=== PATIENT | female | born 2000 | race Caucasian/White ===

== ENCOUNTER 2024-02-17 18:45 | Emergency (ER) | payer OTHER, SELFPAY ==
[2024-02-17] VITALS (9 sets, daily range): BP systolic 114–120; BP diastolic 67–82; PULSE 77–102; RESP 18–20; TEMP 37.2; O2SAT 97–100; BMI 20.6
--- NOTE | 2024-02-17 19:03 | CRLHL7_ITS ---
For Patients: As a result of the Century Cures Act, medical imaging exams and procedure reports are released immediately into your electronic medical record. You may view this report before your referring provider. If you have questions, please contact your health care provider. INDICATION: Chest pain. TECHNIQUE: Chest 1 view. COMPARISON: None. FINDINGS: Cardiovascular and mediastinum: Heart size and vasculature are normal in caliber and appearance. Lungs and pleural spaces: Lungs are clear. No pleural effusion, or pneumothorax. Bones and soft tissues: Unremarkable for age. IMPRESSION: No evidence of an acute pulmonary process. Dictated by Sunday Mills MD @ 02/17/2024 7:42:55 PM (Electronically Signed)
--- NOTE | 2024-02-17 19:06 | ED.GENADULT ---
HPI - General Adult General Chief complaint: Chest Pain Stated complaint: Chest Pains over 24 hours Time Seen by Provider: 02/17/24 18:55 History of Present Illness HPI narrative: Patient is a 24-year-old female who has had some left midclavicular line lower chest wall pain just under her left breast for the last 24 hours. Worse with certain movements deep breathing. She has not had any fevers, chills, cough. She has had no substernal chest pain. She has had no leg swelling edema or bleeding or clotting problems. She has generally felt well and has been healthy. She is not allergic to medication Related Data Previous Rx's ?Medication ?Instructions ?Recorded prednisone 20 mg tablet 20 mg PO BID #10 tabs 02/17/24 Allergies Allergy/AdvReac Type Severity Reaction Status Date / Time No Known Drug Allergies Allergy Verified 02/17/24 18:54 Review of Systems Status of ROS: Reports: 6 or more systems reviewed and unremarkable except as noted in History and below [facility] Social History Smoking Status: Current every day smoker Do you use any of these nicotine containing products: E-Cigarettes and Vaping Products Second hand tobacco smoke exposure: No How often do you have a drink containing alcohol: monthly or less AUDIT-C Alcohol total score: 1 Non-prescribed substance use: denies use Exam Narrative: Exam Narrative: Objective: The patient's vital signs look unremarkable her temp slightly elevated 99 blood pressure and pulse and respiratory rate are normal O2 sats 100% on room air HEENT is unremarkable patient is no apparent distress No cyanosis Neck is supple Chest is clear no rales or wheezing Heart rhythm regular heart murmur Some mildly palpable chest wall pain just below the left breast area in the midclavicular line no crepitus Patient denies trauma or injury Abdomen benign Extremities she is moving all 4s Const: Vital Signs, click to edit/add: Vital Signs - 24 hr 02/17/24 18:49 02/17/24 19:03 02/17/24 19:08 Temperature 99.0 F Pulse Rate 77 Pulse Rate [Pulse Oximeter] 82 Respiratory Rate 20 Blood Pressure Blood Pressure [Ri ght Upper Arm] 119/67 Pulse Oximetry 100 100 100 Oxygen Delivery Me thod Room Air 02/17/24 19:32 02/17/24 20:12 02/17/24 20:38 Temperature Pulse Rate 101 H 97 99 Pulse Rate [Pulse Oximeter] Respiratory Rate 18 18 Blood Pressure 119/82 120/68 114/78 Blood Pressure [Ri ght Upper Arm] Pulse Oximetry 100 100 100 Oxygen Delivery Me thod Room Air Room Air Course Vital Signs Vital signs: Initial Vital Signs Temperature 99.0 F 02/17/24 18:49 Temperature Source Temporal Artery Scan 02/17/24 18:49 Pulse Rate 82 02/17/24 18:49 Respiratory Rate 20 02/17/24 18:49 Blood Pressure 119/67 02/17/24 18:49 Blood Pressure Mean 84 02/17/24 18:49 Blood Pressure Position Supine 02/17/24 18:49 Pulse Oximetry 100 02/17/24 18:49 Oxygen Delivery Method Room Air 02/17/24 18:49 Vital Signs Temperature 99.0 F 02/17/24 18:49 Pulse Rate 82 02/17/24 18:49 Respiratory Rate 20 02/17/24 18:49 Blood Pressure 119/67 02/17/24 18:49 Pulse Oximetry 100 02/17/24 18:49 Oxygen Delivery Method Room Air 02/17/24 18:49 Temperature 99.0 F 02/17/24 18:49 Pulse Rate 95 02/17/24 21:00 Respiratory Rate 18 02/17/24 20:38 Blood Pressure 114/78 02/17/24 20:38 Pulse Oximetry 97 02/17/24 21:00 Oxygen Delivery Method Room Air 02/17/24 20:38 Medications Administered Medications: Discontinued Medications Generic Name Dose Route Start Last Admin Trade Name Ariel PRN Reason Stop Dose Admin Ibuprofen 800 mg 02/17/24 19:03 02/17/24 19:24 Ibuprofen 400 Mg Tablet PO 02/17/24 19:04 800 mg ONCE ONE Administration Morphine Sulfate 4 mg 02/17/24 19:57 02/17/24 20:04 Morphine 4 Mg/Ml Inj IVP 02/17/24 19:58 4 mg ONCE ONE Administration Prednisone 50 mg 02/17/24 19:03 02/17/24 19:24 Prednisone 10 Mg Tablet PO 02/17/24 19:04 50 mg ONCE ONE Administration Medical Decision Making MDM Narrative Medical decision making narrative: 24-year-old white female with left midclavicular line lower chest wall discomfort. Definitely positional, little bit tender to push on. Likely chest wall inflammation. I think given her situation over be [email or web address] check an EKG, chest x-ray to make sure there is no pneumothorax or other pathology and also check a D-dimer and labs. Will check for completeness point of care troponin. By my read her EKG shows normal sinus rhythm with sinus arrhythmia no acute ST T wave changes. Addendum 8:00 p.m.: Patient's troponin is 0, her D-dimer just little bit above normal. She reports her pain in her left anterior chest with movement is getting little bit worse. He got some ibuprofen and prednisone, minute give her some IV morphine and will do a chest CT scan. Her EKG shows normal sinus rhythm with sinus arrhythmia but no acute ST T wave changes. Addendum 9:00 p.m.: The patient's chest CT was read as negative for PE or other focal consolidation. Should be discharged home on the prednisone and Advil as described. Also send her home with some additional [place] for pain control given that she seemed to be pretty uncomfortable her chest wall. EKG showed normal sinus rhythm no acute ST T wave changes and troponin was 0 as mention , lab studies look reassuring. I would recommend she recheck with regular doctor in the next few days if not completely resolved return if worsening or changes. She was comfortable this plan. Lab Data Labs: Lab Results 02/17/24 02/17/24 Range/Units 19:03 19:16 WBC 7.14 (4.50-11.00) K/uL RBC 3.76 L (4.00-5.20) m/uL Hgb 11.4 L (12.0-16.0) gm/dL Hct 34.1 (33.0-51.0) % MCV 91 (80-100) fL MCH 30 (26-34) pg MCHC 33 (32-36) gm/dL RDW Coeff of Grace 12.9 (11.5-15.5) % Plt Count 267 (140-440) K/uL Neut % (Auto) 53.9 (42.0-72.0) % Lymph % (Auto) 33.5 (20-44) % [place] % (Auto) 8.3 (0.0-11.0) % Eos % (Auto) 3.8 (0.0-7.0) % Baso % (Auto) 0.4 (0.0-3.0) % Neut # (Auto) 3.85 (1.7-7.0) K/uL Lymph # (Auto) 2.39 (0.90-2.90) K/uL [place] # (Auto) 0.60 (0.00-0.90) K/UL Eos # (Auto) 0.27 (0.00-0.50) K/uL Baso # (Auto) 0.03 (0.00-0.30) K/uL Abs Immat Gran (auto) 0.01 (0.00-0.30) K/uL Imm/Tot Granulo (auto) 0.1 % D-Dimer Quant (PE/DVT) 0.79 H (0.00-0.50) ug/ml Sodium 140 (135-149) mmol/L Potassium 4.4 (3.6-5.1) mmol/L Chloride 108 (96-114) mmol/L Carbon Dioxide 25 (20-32) mmol/L Anion Gap 7 (7-15) mEq/L BUN 11 (5-24) mg/dL Creatinine 0.6 (0.5-1.5) mg/dL Estimated Creat Clear 126.38 Estimated GFR 130 ml/min Glucose 100 (60-115) mg/dL Calcium 9.3 (8.4-10.6) mg/dL C-Reactive Protein < 0.5 L (0.5-1.0) mg/dL POC Troponin I 0.00 L (0.01-0.04) ng/ml Discharge Plan Discharge Clinical Impression: Acute chest wall pain Patient Disposition: Home w/ Parent or Adult Condition: Stable Additional Instructions: Light activity, ibuprofen 600 mg, 3 times a day for the next 5 days, prednisone 20 mg twice/day for five days. Follow up with regular doctor not improving changes concerns worsening return to the ED at any time. Activity Level: Light activity Discharge Diet: Regular Prescriptions: New prednisone 20 mg tablet 20 mg PO BID Qty: 10 0RF Follow Up/Referrals: Provider,Not a Local [Primary Care Provider] - Stand Alone Forms: [employer] Info Instructions
[2024-02-17] MEDS: predniSONE 10 MG TABLET 50 MG PO (19:24)
[2024-02-17] MEDS: IBUPROFEN 400 MG TABLET 800 MG PO (19:24)
[2024-02-17 19:25] LABS: Basophils Absolute Auto 0.03 K/uL (0.00-0.30); Basophils Percent Auto 0.4 % (0.0-3.0); Eosinophils Absolute Auto 0.27 K/uL (0.00-0.50); Eosinophils Percent Auto 3.8 % (0.0-7.0); Hematocrit 34.1 % (33.0-51.0); Hemoglobin* 11.4 gm/dL (12.0-16.0); Immature Granulocytes Abs Auto 0.01 K/uL (0.00-0.30); Immature Granulocytes Pct Auto 0.1 %; Lymphocytes Absolute Auto 2.39 K/uL (0.90-2.90); Lymphocytes Percent Auto 33.5 % (20-44); Mean Corpuscular HGB Conc 33 gm/dL (32-36); Mean Corpuscular Hemoglobin 30 pg (26-34); Mean Corpuscular Volume 91 fL (80-100); Monocytes Percent Auto 8.3 % (0.0-11.0); Neutrophils Absolute Auto 3.85 K/uL (1.7-7.0); Neutrophils Percent Auto 53.9 % (42.0-72.0); Platelet Count* 267 K/uL (140-440); RDW Coefficient of Variation % 12.9 % (11.5-15.5); Red Blood Count 3.76 m/uL (4.00-5.20); White Blood Count* 7.14 K/uL (4.50-11.00)
--- OUTSIDE RECORDS SUMMARY | 2024-02-17 19:34 | XMS_ITS | Referral Summary ---
Demographics Address [address] [place] [address] Mobile Phone Home Phone Email Address Email Address Preferred Language ENG Marital Status Single Faith Affiliation Unknown Race White Ethnic Group Not or Lati no Author Organization [facility] Address [address] [place] [address] Care Team Providers Care Patent Chemist Name Role Phone Mary Phillip APRN, C.N.P. Primary Care Provide r Source Comments Patient records contain information from all sites at [facility]. For routine questions regarding patient records, call [phone] during business hours, M-F 8:00 AM - 5:00 PM Central Time. Record requests for emergency care only can be directed to [phone] at any time.[facility] Encounters Date Type Department Care Team Description 02/06/2024 9:54 AM CDT - 02/06/2024 11:59 PM CDT Hospital Encounter Department of Radiology in [address] [phone] Murali Kelly M.D. Arthralgia; Arthritis Inflammatory (HCC) Discharge Disposition: Home or Self Care 02/06/2024 9:54 AM CDT - 02/06/2024 11:59 PM CDT Hospital Encounter Department of Radiology in [address] [phone] Murali Kelly M.D. Arthralgia; Arthritis Inflammatory (HCC) Discharge Disposition: Home or Self Care 02/06/2024 9:43 AM CDT - 02/06/2024 9:53 AM CDT Hospital Encounter Department of Laboratory Medicine in [address] [phone] Murali Kelly M.D. Arthralgia; Arthritis Inflammatory (HCC) Discharge Disposition: Home or Self Care 02/06/2024 9:00 AM CDT Office Visit Department of Family Medicine, [facility], in [place], [place] [address] [place] [phone] Murali Kelly M.D. Arthritis Inflammatory (HCC) (Primary Dx); Arthralgia; Asthma Tobacco User Discharge Disposition: Home or Self Care 02/06/2024 Nurse Triage Department of Family Medicine, [facility], [address] [phone] Anaya Bates R.N. Myalgia 02/05/2024 4:14 PM CDT - 02/05/2024 5:07 PM CDT [facility] [address] [place] [phone] Ember Castillo APRN, C.N.PCeasar Myalgia (Primary Dx) Discharge Disposition: Home or Self Care 02/05/2024 6:33 AM CDT - 02/05/2024 7:19 AM CDT [facility] [address] [place] [phone] Ember Castillo APRN, C.N.P. Torticollis (Primary Dx) Discharge Disposition: Home or Self Care from Last 3 Months Allergies Active Allergy Reactions Criticality Noted Date Comments Cat Dander Other (see comments) 05/22/2015 Please Verify & complete Reaction & Severity cervantes! Dog Dander Rash Medium 01/01/2016 Medications Medication Sig Dispensed Refills Start Date End Date Status multivitamin tablet Take 1 tablet by mouth. 11/29/2017 Active cetirizine (ZyrTEC) 10 mg tablet Take 10 mg by mouth daily as needed for allergies. Active cyclobenzaprine (FLEXERIL) 10 mg tablet Take 1 tablet (10 mg total) by mouth 3 (three) times a day as needed for muscle spasms for up to 5 days. 15 tablet 02/05/2024 Active methylPREDNISolone (MEDROL DOSEPAK) 4 mg tabletIndications:Art hritis Inflammatory (HCC) Take as directed on package. 21 tablet 02/06/2024 Active Active Problems Problem Noted Date Diagnosed Date Asthma Tobacco User 02/06/2024 Depressive Disorder 04/27/2017 Overview: Depression Immunizations Name Administration Dates Next Due 4vHPV (discontinued) 04/25/2017 9vHPV 04/03/2020,06/25/2019,04/25/2017 Adenovirus 04/19/2021 DTaP (Infanrix, Tripedia) 04/23/2007,06/18/2003 HepA Adult 08/07/2020 HepA Pediatric/Adolescent 03/29/2012 HepA, Pediatric Unspecified 03/29/2012 HepB Pediatric/Adolescent 04/25/2017,03/29/2012, 06/18/2003 HepB, Unspecified 03/29/2012 Hib (PRP-T) (ACTHIB, HIBERIX) 06/18/2003 IPV 05/24/2021, 2,04/23/2007,2002 Influenza Laiv (Nasal) (Discontinued) 08/04/2014 Influenza, Unspecified 10/14/2013,06/13/2011 MCV4 (Menactra)(Discontinued) 04/19/2021, 019,04/23/2014 MMR 04/23/2007,01/27/2003 Td (Adult), adsorbed 03/29/2012 Tdap 04/19/2021,04/25/2017 TyVi (inj) 05/24/2021 AMBROSIO 05/24/2021,,04/23/2007,2002 influenza vaccine quad (FLUZONE/FLUARIX) (6 months and older)(PF) 05/24/2021,06/25/2019,06/15/2018 Social History Tobacco Use Types Packs/Day Years Used Date Smoking Tobacco: Every Day E-cigarettes Started: 07/28/2020 Smokeless Tobacco: Never Tobacco Cessation:Ready to Q uit: Not Asked; Counseling Given: Not Answered Comments:Significantly cutting back. Alcohol Use Standard Drinks/Week Comments No 0 (1 standard drink = 0.6 oz pur e alcohol) 1-2 times a month Humiliation, Afraid, Rape, and Kick questionnair e Answer Date Recorded Within the last year, have y ou been afraid of your partner or ex-partner? No 12/08/2020 Within the last year, have y ou been humiliated or emotionally abused in other ways by your partner or ex-partner? No Within the last year, have y ou been kicked, hit, slapped, or otherwise physically hurt by your partner or ex-partner? No 12/08/2020 Within the last year, have y ou been raped or forced to have any kind of sexual activity by your partner or ex-partner? No 12/08/2020 Social Connection and Isolat ion Panel [NHANES] Answer Date Recorded In a typical week, how many times do you talk on the phone with family, friends, or neighbors? More than three times a week 12/08/2020 How often do you get togethe r with friends or relatives? Twice a week 12/08/2020 How often do you attend chur or quaker services? More than 4 times per year 12/08/2020 Do you belong to any clubs o r organizations such as congregational groups, unions, fraternal or athletic groups, or school groups? No 12/08/2020 How often do you attend meet ings of the clubs or organizations you belong to? Never 12/08/2020 Are you , , di vorced, , never , or living with a partner? Never 12/08/2020 AUDIT-C Answer Date Recorded Q1: How often do you have a drink containing alc ohol? Never 12/08/2020 Average Number of Drinks Not on file 021 Frequency of Binge Drinking Not on file 11/26 Overall Financial Resource Strain (CARDIA) Answe r Date Recorded How hard is it for you to pa y for the very basics like food, housing, medical care, and heating? Not hard at all 12/08/2020 PHQ-2 Answer Date Recorded PHQ-2 Score 0 02/06/2024 [facility] [place] of Occupat ional Health - Occupational Stress Questionnaire Answer Date Recorded Do you feel stress - tense, restless, nervous, or anxious, or unable to sleep at night because your mind is troubled all the time - these days? Not at all 12/08/2020 Exercise Vital Sign Answer Date Recorde d On average, how many days pe r week do you engage in moderate to strenuous exercise (like a brisk walk)? 0 days 12/08/2020 On average, how many minutes do you engage in exercise at this level? 0 min 12/08/2020 Hunger Vital Sign Answer Date Recorded Within the past 12 months, y ou worried that your food would run out before you got the money to buy more. Never true 12/09/19 21 Within the past 12 months, t he food you bought just didn't last and you didn't have money to get more. Never true 12/08/2020 PRAPARE - Transportation Answer Date Re corded In the past 12 months, has l ack of transportation kept you from medical appointments or from getting medications? No 11/26 In the past 12 months, has l ack of transportation kept you from meetings, work, or from getting things needed for daily living? No 12/08/2020 Depression Answer Date Recor ded PHQ-9 Total Score (max 27) 0 02/05 Nutrition Answer Date Recorded Nutrition: EVOO Fat Source No 12/08 On average, how many serving s of fruits and vegetables do you eat per day (serving size is equal to 1 cup or approximately the size of a tennis ball)? 2-3 12/08/2020 Dental Answer Date Recorded Dental: Regular Dentist Unknown 12/18/19 Education Answer Date Recorded What is the highest level of school you have completed or the highest degree you have received? 12th grade 12/08/2020 Sex and Gender Information Value Date Recorded Sex Assigned at Not on file Gender Identity Female 12/08/2020 7:34 PM CDT Sexual Orientation Lesbian or Carrion 12/08/2020 7: 34 PM CDT Last Filed Vital Signs Vital Sign Reading Time Taken Comments Blood Pressure 103/68 02/06/2024 9:04 AM CDT Pulse 89 02/06/2024 9:04 AM CDT Temperature 36.2 ??C (97.1 ??F) 02/06/2024 9:04 AM CD T Respiratory Rate 16 02/05/2024 4:59 PM CDT Oxygen Saturation 98% 02/05/2024 4:59 PM CDT Inhaled Oxygen Concentration - - Weight 53.1 kg (117 lb 1 oz) 02/06/2024 9:04 AM CDT Height 160 cm (5' 2.99) 02/06/2024 9:04 AM CDT Body Mass Index 20.74 02/06/2024 9:04 AM CDT Plan of Treatment Not on file Procedures Procedure Name Priority Date/Time Associated Diagnosis Comments DX HAND BILATERAL 3+ VIEWS RAD - Routine (most inpatients and all outpatients) 02/06/2024 10:21 AM CDT Arthralgia Arthritis Inflammatory (HCC) DX FOOT BILATERAL 3+ VIEWS RAD - Routine (most inpatients and all outpatients) 02/06/2024 10:18 AM CDT Arthralgia Arthritis Inflammatory (HCC) MANUAL DIFFERENTIAL, B Routine 02/06/2024 9:53 AM CDT MORPHOLOGY EVALUATION Routine 02/06/2024 9:53 AM CDT ANTINUCLEAR AB, HEP-2, SUBSTRATE, S Routine 02/06/2024 9:53 AM CDT Arthralgia Arthritis Inflammatory (HCC) RHEUMATOID FACTOR, S/P Routine 02/06/2024 9:53 AM CDT Arthralgia Arthritis Inflammatory (HCC) CYCLIC CITRULLINATED PEPTIDE ABS, IGG, S Routine 02/06/2024 9:53 AM CDT Arthralgia Arthritis Inflammatory (HCC) COMPREHENSIVE METABOLIC PANEL, S/P Routine 02/06/2024 9:53 AM CDT Arthralgia Arthritis Inflammatory (HCC) C-REACTIVE PROTEIN (CRP), S/P Routine 02/06/2024 9:53 AM CDT Arthralgia Arthritis Inflammatory (HCC) SEDIMENTATION RATE, B Routine 02/06/2024 9:53 AM CDT Arthralgia Arthritis Inflammatory (HCC) CBC WITH DIFFERENTIAL, B Routine 02/06/2024 9:53 AM CDT Arthralgia Arthritis Inflammatory (HCC) IFLU A, B, SARS COV-2, PCR, RAPID,V STAT 02/05/2024 4:31 PM CDT THINPREP SCREEN HPV REFLEX Routine 03/24/2023 10:33 AM CDT Pap Smear Examination CHLAMYDIA/GONORRHOEA E AMPLIFIED RNA Routine 08/13/2018 7:05 PM [employer] Pruritus Vagina from Last 3 Months or Most Recently Relevant to Health Maintenance Results * DX Hand Bilateral 3+ Views (02/06/2024 10:21 AM CDT) Anatomical Region Laterality Modality Upper Extremity, Hand, Muscu loskeletal RST LOS, Musculoskeletal ARZ LOS, Muskuloskeletal FLA LOS Bilateral Digit al Radiography Impressions 02/06/2024 10:32 AM CDT Comparison 06/27/2022. On the right, joint spaces are normal. No acute fracture or osseous erosion. Ulnar positive variance. On the left, joint spaces are normal. No acute fracture or osseous erosion. Ulnar positive variance. Narrative 02/06/2024 10:32 AM CDT EXAM: DX HAND BILATERAL 3+ VIEWS Procedure Note Silviano Rajan M.D. - 02/06/2024 EXAM: DX HAND BILATERAL 3+ VIEWS IMPRESSION: Comparison 06/27/2022. On the right, joint spaces are normal. No acute fracture or osseouserosion. Ulnar positive variance. On the left, joint spaces are normal. No acute fracture or osseouserosion. Ulnar positive variance. Murali Kelly M.D. G DIAGNOSTIC IMAGI NG PROCEDURES * DX Foot Bilateral 3+ Views (02/06/2024 10:18 AM CDT) Anatomical Region Laterality Modality Lower Extremity, Foot, Muscu loskeletal RST LOS, Musculoskeletal ARZ LOS, Muskuloskeletal FLA LOS Bilateral Digit al Radiography Impressions 02/06/2024 10:29 AM CDT Negative for acute fracture. No dislocation. No prominent degeneration or aggressive appearing skeletal lesion. Narrative 02/06/2024 10:29 AM CDT EXAM: DX FOOT BILATERAL 3+ VIEWS Procedure Note Emmanuel Bui M.D. - 02/06/2024 EXAM: DX FOOT BILATERAL 3+ VIEWS IMPRESSION: Negative for acute fracture. No dislocation. No prominent degeneration oraggressive appearing skeletal lesion. Murali Kelly M.D. IMG DIAGNOSTIC IMAGI NG PROCEDURES * (ABNORMAL) Morphology Evaluation (02/06/2024 9:53 AM CDT) RBC Morphology Normal 02/06/2024 10:50 AM CDT RDW[facility] PLT Morphology Normal 02/06/2024 10:50 AM CDT RDW[facility] PLT Estimate Adequate Adequate 02/06/2024 10:50 AM CDT R[facility] Reactive/Atypic al Lymphocytes Present(A) Not Seen 02/06/2024 10:50 AM CDT [facility] Blood 02/06/2024 9:53 AM CDT 02/06/2024 9:54 AM CDT Murali Kelly M.D. LAB BLOOD ADD-ON Performing Organization Address City/[facility]/ZIP Co de Phone Number [facility] [address] [place] [id number], [facility] RDWG [facility] [place] [address] * Antinuclear Antibodies, HEp-2 Substrate, IgG, Serum (02/06/2024 9:53 AM CDT) Antinuclear Ab Screen by IFA, S Negative Negative 02/08/2024 12:04 PM CDT ECLR Comment:No titer performed, JEFE screen is negative. Blood (Blood, Venous) 02/06/2024 9:53 AM CDT 02/06/2024 2:28 PM CDT Murali Kelly M.D. LAB BLOOD ADD-ON [facility] [address] [place] [address], [facility] ECLR [address] [phone] * Manual Differential, Blood (02/06/2024 9:53 AM CDT) Segmented Neutrophils 61 50 - 75 % 02/06/2024 10:50 AM CDT RDWG Lymphocytes % 31 18 - 42 % 02/06/2024 10:50 AM CDT RDW[facility] Monocytes 5 2 - 11 % 02/06/2024 10:50 AM CDT [facility] Eosinophils 2 1 - 3 % 02/06/2024 10:50 AM CDT R[facility] Basophils 1 0 - 2 % 02/06/2024 10:50 AM CDT RDW[facility] Manual Absolute Neutrophil Count 2.74 1.56 - 6.45 x10(9)/L 02/06/2024 10:50 AM CDT RDWG Comment: ----ADDITIONAL INFORMATION---- The manual absolute neutrophil count is derived from a manual differential count and therefore is not exactly comparable to the automated absolute neutrophil count. Blood 02/06/2024 9:53 AM CDT 02/06/2024 9:54 AM CDT Murali Kelly M.D. LAB BLOOD ADD-ON [facility] [address] [place] [address], [facility] RDWG [facility] [place] [address] [place] [address] * Cyclic Citrullinated Peptide Antibodies, IgG (02/06/2024 9:53 AM CDT) Cyclic Citrullinated Peptide Ab, S <15.6 <20.0 (Negative) U 02/07/2024 1:12 PM CDT [facility] Blood (Blood, Venous) 02/06/2024 9:53 AM CDT 02/07/2024 6:59 AM CDT Murali Kelly M.D. LAB BLOOD ADD-ON [facility] [address] [place] [address] [facility] [address] [place] [address] * Sedimentation Rate (02/06/2024 9:53 AM CDT) Pathologist [facility] Sedimentation Rate, B 20 0 - 29 mm/1 h 02/06/2024 10:28 AM CDT RDWG Blood (Blood, Venous) 02/06/2024 9:53 AM CDT 02/06/2024 9:54 AM CDT Murali Kelly M.D. LAB BLOOD ADD-ON [facility] [address] [place] [address], [facility] RDWG [facility] [place] [address] [place] [address] * CBC with Differential, Blood (02/06/2024 9:53 AM CDT) [facility] Hemoglobin 12.7 11.6 - 15.0 g/dL 02/06/2024 10:10 AM CDT RDWG Hematocrit 36.4 35.5 - 44.9 % 02/06/2024 10:10 AM CDT RDWG Erythrocytes 4.13 3.92 - 5.13 x10(12)/ L 02/06/2024 10:10 AM CDT R[facility] MCV 88.1 78.2 - 97.9 fL 02/06/2024 10:10 AM CDT RDWG RBC Distrib Width 12.4 12.2 - 16.1 % 02/06/2024 10:10 AM CDT R[facility] Platelet Count 250 157 - 371 x10(9)/L 02/06/2024 10:10 AM CDT RDW[facility] Leukocytes 4.5 3.4 - 9.6 x10(9)/L 02/06/2024 10:10 AM CDT R[facility] Neutrophils See manual differential 1.56 - 6.45 x10(9)/L 02/06/2024 10:50 AM CDT R[facility] Blood (Blood, Venous) 02/06/2024 9:53 AM CDT 02/06/2024 9:54 AM CDT Murali Kelly M.D. LAB BLOOD ADD-ON [facility] [address] [place] [address], [facility] RDWG [facility] [place] [address] [place] [address], [place] [address] * Rheumatoid Factor (02/06/2024 9:53 AM CDT) Rheumatoid Factor, S <10 <15 IU/mL 02/06/2024 3:01 PM CDT ECLR Blood (Blood, Venous) 02/06/2024 9:53 AM CDT 02/06/2024 2:28 PM CDT Murali Kelly M.D. LAB BLOOD ADD-ON Performing Organization Address City/[facility] Co de Phone Number [facility] [address] [place] [address] ECLR [facility] [place] [address] * (ABNORMAL) CRP (C-Reactive Protein) (02/06/2024 9:53 AM CDT) C-Reactive Protein (CRP), P 9.2(H) <5.0 mg/L 02/06/2024 10:23 AM CDT RDWG Blood (Blood, Venous) 02/06/2024 9:53 AM CDT 02/06/2024 9:54 AM CDT Murali Kelly M.D. LAB BLOOD ADD-ON [facility] [address] [place] [address], [facility] RDWG [facility] [place] [address], [place] [address] * Comprehensive Metabolic Panel (02/06/2024 9:53 AM CDT) Potassium, P 4.0 3.6 - 5.2 mmol/L 02/06/2024 10:23 AM CDT RDWG Sodium, P 141 135 - 145 mmol/L 02/06/2024 10:23 AM CDT RDW[facility] Chloride, P 106 98 - 107 mmol/L 02/06/2024 10:23 AM CDT RDW[facility] Bicarbonate, P 25 22 - 29 mmol/L 02/06/2024 10:23 AM CDT RDW[facility] Anion Gap, P 10 7 - 15 02/06/2024 10:23 AM CDT RDW[facility] BUN (Blood Urea Nitrogen), P 11 6 - 21 mg/dL 02/06/2024 10:23 AM CDT RDWG Creatinine 0.73 0.59 - 1.04 mg/dL 02/06/2024 10:23 AM CDT RDWG Estimated GFR (eGFR) >90 >=60 mL/min/BS A 02/06/2024 10:23 AM CDT RDWG Comment: Estimated GFR calculated using the 2020 CKD_EPI creatinine equation. Calcium, Total, P 8.9 8.6 - 10.0 mg/dL 02/06/2024 10:23 AM CDT RDWG Glucose, P 88 70 - 140 mg/dL 02/06/2024 10:23 AM CDT RDWG Protein, Total, P 7.1 6.3 - 7.9 g/dL 02/06/2024 10:23 AM CDT RDW[facility] Albumin, P 4.2 3.5 - 5.0 g/dL 02/06/2024 10:23 AM CDT RDWG Aspartate Aminotransferase (AST), P 21 8 - 43 U/L 02/06/2024 10:23 AM CDT RDWG Alkaline Phosphatase, P 49 35 - 104 U/L 02/06/2024 10:23 AM CDT RDWG Alanine Aminotransferase (ALT), P 13 7 - 45 U/L 02/06/2024 10:23 AM CDT RDWG Bilirubin, Total, P 0.4 0.0 - 1.2 mg/dL 02/06/2024 10:23 AM CDT RDW[facility] Blood (Blood, Venous) 02/06/2024 9:53 AM CDT 02/06/2024 9:54 AM CDT Murali Kelly M.D. LAB BLOOD ADD-ON [facility] [address] [place] [address], [facility] RDWG [facility] [place] [address] [place] [address] * Influenza A/B, SARS CoV-2, PCR, Rapid Symptomatic (02/05/2024 4:31 PM CDT) [facility] Influenza A, PCR, Rapid, V Negative Negative 02/05/2024 4:36 PM CDT CNFL Influenza B, PCR, Rapid, V Negative Negative 02/05/2024 4:36 PM CDT CNFL SARS CoV-2, PCR, Rapid, V Undetected Undetected 02/05/2024 4:36 PM CDT CNFL Comment: ----ADDITIONAL INFORMATION---- This RT-PCR test was performed using the [employer] SARS-CoV-2 and Influenza A/B Reagent assay from [employer], which has received Emergency Use Authorization(EUA) by the U.S. Food and Drug Administration. Fact sheets for this Emergency Use Authorization (EUA) assay can be found at the following links: For Healthcare Providers: https://www.fda.gov/media/961734/download For Patients: https://www.fda.gov/media/303154/download Infl A/B, SARS CoV-2, PCR, Source Swab, Nasopharynx 02/05/2024 4:33 PM CDT CNFL Swab (Nasopharynx) 02/05/2024 4:31 PM CDT 02/05/2024 4:33 PM CDT Ghazal Theodore APRNNJonathon LAB MICR OBIOLOGY - GENERAL ORDERABLES Performing Organization Address City/State/[facility] Co de Phone Number [facility] [address] [place] [address], [facility] CNFL [facility] in [address] [address] * ThinPrep Screen HPV Reflex (03/24/2023 10:33 AM CDT) 03/29/2023 9:24 AM CDT ECLR Report electronically signed by WILFRIDO Melgoza(ASCP) I verify that I have examined all relevant slides/materials for the specimen(s) and rendered or confirmed the diagnosis. 03/29/2023 9:24 AM CDT ECLR Gross Description Received specimen in a ThinPrep vial. 03/29/2023 9:24 AM CDT ECLR Pap Test Source Cervical/Endocervi bran 03/29/2023 9:24 AM CDT ECLR Interpretation Cervical/Endocervi bran ??(ThinPrep): Satisfactory for Evaluation Partially obscuring inflammation Negative for Intraepithelial Lesion or Malignancy 03/29/2023 9:24 AM CDT ECLR Thin Prep Vial (Cervix/Endocerv ix) 03/24/2023 10:33 AM CDT 03/27/2023 9:05 AM CDT Mary Phillip APRN, C.N.P. LAB PAP PATHD X ORDERABLES [facility] [address] [place] [address], [facility] ECLR [address] [place] [phone] * Chlamydia / Gonorrhoeae Amplified RNA (08/13/2018 7:05 PM [employer]) Source Vaginal 08/15/2018 12:30 PM [employer] [facility] Chlamydia trachomatis amplified RNA Negative Negative 08/15/2018 12:30 PM [employer] [facility] Comment: ----ADDITIONAL INFORMATION---- This report is intended for use in clinical monitoring and management of patients. It is not intended for use in medical-legal applications. Source Vaginal 08/15/2018 12:30 PM [employer] [facility] Neisseria gonorrhoeae amplified RNA Negative Negative 08/15/2018 12:30 PM [employer] [facility] Comment: ----ADDITIONAL INFORMATION---- This report is intended for use in clinical monitoring and management of patients. It is not intended for use in medical-legal applications. Varies (Vagina) 08/13/2018 7 :05 PM [employer] 08/14/2018 2:40 PM [employer] Mary Del Valle APRN, C.N.P., D.N.P. LAB MICROBIOLOGY - GENERAL ORDERABLES [facility] [address] [place] [address], [facility] from Last 3 Months or Most Recently Relevant to Health Maintenance Care Teams Patent Chemist Relationship Specialty Start Date End Date Mary Phillip APRN, C.N.P. [facility] [phone] PCP - General Family Medicine 03/07/23
--- OUTSIDE RECORDS SUMMARY | 2024-02-17 19:34 | XMS_ITS | Clinical Summary ---
Demographics Address [address] [place] [address] Mobile Phone Home Phone Email Address Email Address Preferred Language ENG Marital Status Single Worship Affiliation Unknown Race White Ethnic Group Not or Lati no Author Organization [facility] Address [address] [place] [address] Care Team Providers Care Shot Core Drill Operator Helper Name Role Phone Mary Phillip APRN, C.N.P. Primary Care Provide r Source Comments Patient records contain information from all sites at [facility]. For routine questions regarding patient records, call [phone] during business hours, M-F 8:00 AM - 5:00 PM Central Time. Record requests for emergency care only can be directed to [phone] at any time.[facility] Allergies Active Allergy Reactions Criticality Noted Date [...] User 02/06/2024 Depressive Disorder 04/27/2017 Overview: Depression Encounters Date Type Department Care Team Description 02/06/2024 9:54 AM CDT - 02/06/2024 11:59 PM CDT Hospital Encounter Department of Radiology in [address] [phone] Murali Kelly M.D. Arthralgia; Arthritis Inflammatory (HCC) Discharge Disposition: Home or Self Care 02/06/2024 9:54 AM CDT - 02/06/2024 11:59 PM CDT Hospital Encounter Department of Radiology in [address] [phone] Murali Kelly M.D. Arthralgia; Arthritis Inflammatory (HCC) Discharge Disposition: Home or Self Care 02/06/2024 9:43 AM CDT - 02/06/2024 9:53 AM CDT Hospital Encounter Department of Laboratory Medicine in [address] [address] Murali Kelly M.D. Arthralgia; Arthritis Inflammatory (HCC) Discharge Disposition: Home or Self Care 02/06/2024 9:00 AM CDT Office Visit Department of Family Medicine, [facility], in [address] [phone] Murali Kelly M.D. Arthritis Inflammatory (HCC) (Primary Dx); Arthralgia; Asthma Tobacco User Discharge Disposition: Home or Self Care 02/06/2024 Nurse Triage Department of Family Medicine, [facility], in [address] [phone] Anaya Bates R.N. Myalgia 02/05/2024 4:14 PM CDT - 02/05/2024 5:07 PM CDT Emergency [facility] [address] [place] [phone] Ember Castillo APRN C.N.P. Myalgia (Primary Dx) Discharge Disposition: Home or Self Care 02/05/2024 6:33 AM CDT - 02/05/2024 7:19 AM CDT Emergency [facility] [address] [place] [phone] Ember Castillo, Ghazal DILLARDNCeasarPCeasar Torticollis (Primary Dx) Discharge Disposition: Home or Self Care from Last 3 Months Immunizations Name Administration Dates Next Due 4vHPV [...] quad (FLUZONE/FLUARIX) (6 months and older)(PF) 05/24/2021,06/25/2019,06/15/2018 Family History Medical History Relation Name Comments Depression Mother Skin cancer Mother Relation Name Status Comments Mother Social History Tobacco Use Types Packs/Day Years [...] week 12/08/2020 How often do you attend [facility] or latter day services? More than 4 times per year 12/08/2020 Do you belong to any clubs o r organizations such as faith groups, unions, fraternal or athletic groups, or [...] Answer Date Recorded PHQ-2 Score 0 02/06/2024 [facility] of Occupat ional Health - Occupational Stress [...] Date Recorded Dental: Regular Dentist Unknown 12/18/19 24 Education Answer Date Recorded What is the [...] 02/06/2024 9:04 AM CDT Plan of Treatment Health Maintenance Due Date Last Done Comments HIV Screening 2002 Hepatitis C Screening 2002 Pneumococcal vaccine (0-64 y ears) (1 of 2 - PCV) 01/25/2008 Chlamydia and Gonorrhea Screening 08/13/2019 018, 04/25/2017 Tobacco Cessation counseling 04/03/2021 04/03/2020 COVID-19 Vaccine (3 - 2022-2 4 season) 2023 05/24/2021, 04/20/2021 Influenza Vaccine (#1) 2023 , 06/25/2019, 06/15/2018, Additional history exists Asthma Action Plan 02/06/2024 Asthma Control Test Questionnaire 02/06/2024 Asthma Management/Exacerbati on Questionnaire (AMQ/AEQ) 02/06/2024 Depression Monitoring (PHQ-9) 06/07/2024 02/06/2024 Cervical Cancer Screening 03/24/2026 03/24/2023 DTaP,Tdap,and Td Vaccines (6 - Td or Tdap) 04/19/2031 04/19/2021, 04/25/2017, 03/29/2012, Additional history exists Hepatitis B Vaccines Completed 04/25/2017, 03/29/2012, 03/29/2012, Additional history exists HPV Vaccines Completed 04/03/2020, 05/29, 04/25/2017, Additional history exists Hepatitis A Vaccines Completed 08/07/2020, 03/29/2012, 03/29/2012 Meningococcal Vaccine Completed 04/19/2021 , 06/25/2019, 04/23/2014 Varicella Vaccines Completed 05/24/2021, 0 04/19/2021, 04/23/2007, Additional history exists Procedures Procedure Name Priority Date/Time Associated Diagnosis [...] E AMPLIFIED RNA Routine 08/13/2018 7:05 PM TITLE COORDINATOR Pruritus Vagina from Last 3 Months or [...] osseouserosion. Ulnar positive variance. Murali Kelly M.D. IMG DIAGNOSTIC IMAGI NG PROCEDURES * DX Foot [...] (ABNORMAL) Morphology Evaluation (02/06/2024 9:53 AM CDT) Pathologist [facility] RBC Morphology Normal 02/06/2024 10:50 AM CDT [facility] PLT Morphology Normal 02/06/2024 10:50 AM CDT [facility] PLT Estimate Adequate Adequate 02/06/2024 10:50 AM CDT [facility] Reactive/Atypic al Lymphocytes Present(A) Not Seen 02/06/2024 10:50 AM CDT [facility] Blood 02/06/2024 9:53 AM CDT 02/06/2024 9:54 AM CDT Murali Kelly M.D. LAB BLOOD ADD-ON Performing Organization Address City/[facility]/ZIP Co de Phone Number [facility] [address] [place] [phone], [facility] RDWG [facility] in [place] [address] [place] [phone] * Antinuclear Antibodies, HEp-2 Substrate, IgG, Serum (02/06/2024 9:53 AM CDT) Pathologist [facility] Antinuclear Ab Screen by IFA, S Negative Negative 02/08/2024 12:04 PM CDT ECLR Comment:No titer performed, JEFE screen is negative. Blood (Blood, Venous) 02/06/2024 9:53 AM CDT 02/06/2024 2:28 PM CDT Murali Kelly M.D. LAB BLOOD ADD-ON [facility] [address] [place] [address], [place] ECLR [address] [place] [phone] * Manual Differential, Blood (02/06/2024 9:53 AM CDT) [facility] Segmented Neutrophils 61 50 - 75 % [...] CDT Murali Kelly M.D. LAB BLOOD ADD-ON [facility] [address] [place] [address], [facility] RDWG [facility] in [address] [address] * Cyclic Citrullinated Peptide Antibodies, IgG (02/06/2024 9:53 AM CDT) [facility] Cyclic Citrullinated Peptide Ab, S <15.6 <20.0 (Negative) U 02/07/2024 1:12 PM CDT [facility] Blood (Blood, Venous) 02/06/2024 9:53 AM CDT 02/07/2024 6:59 AM CDT Murali Kelly M.D. LAB BLOOD ADD-ON [facility] [address] [place] [address] [facility] [address] [place] [place] [address] * Sedimentation Rate (02/06/2024 9:53 AM CDT) Sedimentation Rate, B 20 0 - 29 mm/1 h 02/06/2024 10:28 AM CDT [facility] Blood (Blood, Venous) 02/06/2024 9:53 AM CDT 02/06/2024 9:54 AM CDT Murali Kelly M.D. LAB BLOOD ADD-ON [facility] [address] [place] [address], [facility] RDWG [facility] [place] [address] [place] [address] * CBC with Differential, Blood (02/06/2024 9:53 AM CDT) Pathologist [facility] Hemoglobin 12.7 11.6 - 15.0 g/dL 02/06/2024 [...] CDT Murali Kelly M.D. LAB BLOOD ADD-ON [facility] [address] [place] [address], [facility] RDWG [facility] [place] [address] * Rheumatoid Factor (02/06/2024 9:53 AM CDT) Rheumatoid Factor, S <10 <15 IU/mL 02/06/2024 3:01 PM CDT ECL[facility] Blood (Blood, Venous) 02/06/2024 9:53 AM CDT 02/06/2024 2:28 PM CDT Murali Kelly M.D. LAB BLOOD ADD-ON [facility] [address] [place] [address], [facility] ECLR [facility] [place] [address] * (ABNORMAL) CRP (C-Reactive Protein) (02/06/2024 9:53 AM CDT) C-Reactive Protein (CRP), P 9.2(H) <5.0 mg/L 02/06/2024 10:23 AM CDT [facility] Blood (Blood, Venous) 02/06/2024 9:53 AM CDT 02/06/2024 9:54 AM CDT Murali Kelly M.D. LAB BLOOD ADD-ON [facility] [address] [place] [address], [facility] RDWG [facility] [place] [address] * Comprehensive Metabolic Panel (02/06/2024 9:53 AM [...] CDT Murali Kelly M.D. LAB BLOOD ADD-ON [facility] [place] [facility] [address] [place] [address], [facility] RDWG [facility] [place] [address] [place] [address] * Influenza A/B, SARS CoV-2, PCR, Rapid Symptomatic (02/05/2024 4:31 PM CDT) [facility] Influenza A, PCR, Rapid, V Negative Negative [...] at the following links: For Healthcare Providers: https://www.fda.gov/media/991209/download For Patients: https://www.fda.gov/media/442943/download Infl A/B, SARS CoV-2, PCR, Source Swab, Nasopharynx 02/05/2024 4:33 PM CDT CNFL Swab (Nasopharynx) 02/05/2024 4:31 PM CDT 02/05/2024 4:33 PM CDT Ember Castillo APRN, C.N.P. LAB MICR OBIOLOGY - GENERAL ORDERABLES [facility] [address] [place] [address], [place] CNFL [facility] in [address] [address] * ThinPrep Screen HPV Reflex (03/24/2023 10:33 [...] CDT 03/27/2023 9:05 AM CDT Mary Phillip APRN C.N.PCeasar LAB PAP PATHD X ORDERABLES [facility] [address] [place] [address], [facility] ECLR [address] [place] [phone] * Chlamydia / Gonorrhoeae Amplified RNA (08/13/2018 7:05 PM TITLE COORDINATOR) Source Vaginal 08/15/2018 12:30 PM TITLE COORDINATOR [facility] Chlamydia trachomatis amplified RNA Negative Negative 08/15/2018 12:30 PM TITLE COORDINATOR [facility] Comment: ----ADDITIONAL INFORMATION---- This report is intended for use in clinical monitoring and management of patients. It is not intended for use in medical-legal applications. Source Vaginal 08/15/2018 12:30 PM TITLE COORDINATOR [facility] Neisseria gonorrhoeae amplified RNA Negative Negative 08/15/2018 12:30 PM TITLE COORDINATOR [facility] Comment: ----ADDITIONAL INFORMATION---- This report is intended for use in clinical monitoring and management of patients. It is not intended for use in medical-legal applications. Varies (Vagina) 08/13/2018 7 :05 PM TITLE COORDINATOR 08/14/2018 2:40 PM TITLE COORDINATOR Mary Del Valle APRN C.N.P., D.N.P. LAB MICROBIOLOGY - GENERAL ORDERABLES [facility] [address] [place], [place] [id number], [facility] from Last 3 Months or Most Recently Relevant to Health Maintenance Care Teams Shot Core Drill Operator Helper Relationship Specialty Start Date End Date Mary Phillip APRN, C.N.P. [address] [place] [phone] PCP - General Family Medicine 03/07/23
--- OUTSIDE RECORDS SUMMARY | 2024-02-17 19:35 | XMS_ITS ---
Demographics Address [address] [place] [address] Mobile Phone Home Phone Email Address Email Address Preferred Language ENG Marital Status Single Druze Affiliation Unknown Race White Ethnic Group Not or Lati no Author Organization [facility] Address [address] [place] [address] Care Team Providers Care Runner Out Name Role Phone Unavailable Unavailable Unavailable Surgery Details Not on file Complications Check Surgery Details section. Procedure Estimated Blood Loss Check Surgery Details section. Procedure Findings Check Surgery Details section. Procedure Specimens Taken Check Surgery Details section.
--- OUTSIDE RECORDS SUMMARY | 2024-02-17 19:35 | XMS_ITS | Encounter Summary ---
Demographics Address [address] [place] [address] Mobile Phone Home Phone Email Address Email Address Preferred Language ENG Marital Status Single Episcopalian Affiliation Unknown Race White Ethnic Group Not or Lati no Author Organization [facility] Address [address] [place] [address] Care Team Providers Care Travel Specialist Name Role Phone Mary Phillip APRN, C.N.P. Primary Care Provide r Reason for Visit * Reason Comments Neck Pain Myalgia 24 y/o F presenting to ED via private vehicle. Was evaulated in ED this AM for neck pain, reports that the pain is now generalized. Took prescribed muscle relaxant to no relief, reports toradol shot from this AM did not help. Per pt, has remained afebrile with no other new symptoms other than myalgia. Encounter Details Date Type Department Care Team (Late st Contact Info) Description 02/05/2024 4:14 PM CDT - 02/05/2024 5:07 PM CDT Emergency [facility] [address] [place] [phone] Ember Castillo APRN, C.N.P. [address] [place] [phone] Myalgia (Primary Dx) Discharge Disposition: Home or Self Care Social History Tobacco Use Types Packs/Day Years Used Date Smoking Tobacco: Every Day E-cigarettes Started: 07/28/2020 Smokeless Tobacco: Never Comments:Significantly cutti ng back. Alcohol Use Standard Drinks/Week Comments No [...] 12/08/2020 How often do you attend chur ch or methodist services? More than 4 times per year 12/08/2020 Do you belong to any clubs o r organizations such as yazidi groups, unions, fraternal or athletic groups, or [...] Answer Date Recorded PHQ-2 Score 0 02/06/2024 [facility] [place] of Occupat ional Health - Occupational Stress [...] or [place] 12/08/2020 7: 34 PM CDT documented as of this encounter Last Filed Vital Signs Vital Sign Reading Time Taken Comments Blood Pressure 106/61 02/05/2024 4:59 PM CDT Pulse 70 02/05/2024 4:59 PM CDT Temperature 37.3 ??C (99.1 ??F) 02/05/2024 4:59 PM CD T Respiratory Rate 16 02/05/2024 4:59 PM CDT Oxygen Saturation 98% 02/05/2024 4:59 PM CDT Inhaled Oxygen Concentration - - Weight 52 kg (114 lb 10.2 oz) 02/05/2024 4:19 PM CDT Height - - Body Mass Index 20.31 09/13/2023 8:13 AM GRINDER [employer] PLATER documented in this encounter Discharge Instructions * Discharge Instructions* Ember Castillo APRN, C.N.P. - 02/05/2024 4:56 PM CDT Covid and flu results will be available in about an hour, you can check the patient portal for results. Ibuprofen and Tylenol, ice, heat, topical medication as needed for pain. Frequent fluids and rest. Take tomorrow off and don't go back until you are feeling better. Come back to the emergency department if new or worse symptoms, specifically if you can't move yourhead up and down, have a severe headache that won't go away, vomiting and can't keep fluids down, or otherwise worse. * Attachments The following attachments cannot be sent through Care Everywhere. * Muscle Pain Adult (Latvian) documented in this encounter Medications at Time of Discharge Medication Sig Dispensed Refills Start Date End Date cetirizine (ZyrTEC) 10 mg tablet Take 10 mg by mouth daily as needed for allergies. cyclobenzaprine (FLEXERIL) 10 mg tablet Take 1 tablet (10 mg total) by mouth 3 (three) times a day as needed for muscle spasms for up to 5 days. 15 tablet 02/05/2024 multivitamin tablet Take 1 tablet by mouth. 11/29/2017 documented as of this encounter ED Notes * Ember Castillo APRN, C.N.P. - 02/05/2024 4:17 PM CDT SUBJECTIVE CHIEF COMPLAINT/REASON FOR VISIT Neck Pain and Myalgia (24 y/o F presenting to ED via private vehicle. Was evaulated in ED this AM for neck pain, reports that the pain is now generalized. Took prescribed muscle relaxant to no relief, reports toradol shot from this AM did not help. Per pt, has remained afebrile with no other new symptoms other than myalgia.) HISTORY OF PRESENT ILLNESS Martha Hoang is a 24 y.o. female without significant medical history presenting to the emergency department for evaluation of body aches. Patient was seen here earlier today with neck pain discharge home with prescription for Flexeril. She returns this afternoon with concern for all over body aches. Patient states neither the Toradol nor Flexeril helped with her neck pain and now she feels if she got hit by a truck. She has no other symptoms, denies cough, sore throat, congestion, nausea, vomiting or diarrhea. No known sick contacts. She had a headache for short period of time that has gotten better. History provided by: Patient and medical records endoscopy tech needed/used: no REVIEW OF SYSTEMS Constitutional: Negative for chills and fever. HENT: Negative for congestion and sore throat. Respiratory: Negative for cough and shortness of breath. Gastrointestinal: Negative for abdominal pain, diarrhea, nausea and vomiting. Genitourinary: Negative for dysuria. Musculoskeletal: Positive for myalgias and neck pain. Skin: Negative for rash. Neurological: Negative for weakness, light-headedness and headaches. OBJECTIVE Initial Vitals Temperature 02/05/24 1615 37.5 ??C Pulse Rate 02/05/24 1615 87 Heart Rate -- Resp Rate 02/05/24 1615 17 Blood Pressure 02/05/24 1615 123/77 SpO2 02/05/24 1615 100 % Pain Score 02/05/24 1617 6 PHYSICAL EXAMINATION Constitutional: Nursing note and vitals reviewed. No distress. HENT: Head: Normocephalic and atraumatic. Mouth/Throat: Mucous membranes are moist. Eyes: Conjunctivae are normal. Right eye exhibits no discharge. Left eye exhibits no discharge. Neck: Neck supple. No neck adenopathy. Reduced lateral range of motion, normal flexion and extension Cardiovascular: Normal rate, regular rhythm and normal heart sounds. Capillary refill: takes less than 3 seconds Pulmonary/Chest: Effort normal and breath sounds normal. There is normal air entry. No respiratory distress. Abdominal: Soft. Bowel sounds are normal. exhibits no distension. There is no abdominal tenderness.There is no rebound and no guarding. Musculoskeletal: General: No deformity or edema. Normal range of motion. Cervical back: Neck supple. Neurological: Alert and oriented to person, place, and time. Skin: Skin is warm, dry and intact. No rash noted. She is not diaphoretic. Psychiatric: She has a normal mood and affect. Behavior is normal. Judgment and thought content normal. ASSESSMENT/PLAN Unclear etiology of symptoms but no emergent condition apparent. General body aches seems like possible viral syndrome. Covid and flu negative Discharge home with symptomatic treatment, Ibuprofen, Tylenol, heat, topical medication as needed for pain. Discussed return precautions. Assessment and Plan DIFFERENTIAL DIAGNOSES Meningitis - does not have neck stiffness, headache or fever or confusion SEA - afebrile in department, no focal tenderness, no neuro symptoms and not really consistent withoverall body aches Rhabdo - general body aches without any risk factors such as increased activity, seizure, prolongedimmobility Dissection - still reporting neck pain, development of overall body aches not pointing to dissection.. Care is significantly affected by the following Social Determinants of Health: none appreciated. I reviewed the following external records: primary care records. Final Diagnoses: as of 02/05/241818 Myalgia Ember Castillo APRN, C.N.P. 02/05/241823 documented in this encounter Plan of Treatment Not on file documented as of this encounter Procedures Procedure Name Priority Date/Time Associated Diagnosis Comments IFLU A, B, SARS COV-2, PCR, RAPID,V STAT 02/05/2024 4:31 PM CDT documented in this encounter Results * Influenza A/B, SARS CoV-2, PCR, Rapid Symptomatic (02/05/2024 4:31 PM CDT) Influenza A, PCR, Rapid, V Negative Negative 02/05/2024 4:36 PM CDT CNFL Influenza B, PCR, Rapid, V Negative Negative 02/05/2024 4:36 PM CDT [place] SARS CoV-2, PCR, Rapid, V Undetected Undetected 02/05/2024 4:36 PM CDT [facility] Comment: ----ADDITIONAL INFORMATION---- This RT-PCR test was performed using the [employer] SARS-CoV-2 and Influenza A/B Reagent assay from [employer], which has received Emergency Use Authorization(EUA) by the U.S. Food and Drug Administration. Fact sheets for this Emergency Use Authorization (EUA) assay can be found at the following links: For Healthcare Providers: https://www.fda.gov/media/342943/download For Patients: https://www.fda.gov/media/733266/download Infl A/B, SARS CoV-2, PCR, Source Swab, Nasopharynx 02/05/2024 4:33 PM CDT CNFL Swab (Nasopharynx) 02/05/2024 4:31 PM CDT 02/05/2024 4:33 PM CDT Nayeli Theodore APRNPCeasar LAB MICR OBIOLOGY - GENERAL ORDERABLES [facility] [address] [place] [address], [facility] CNFL [facility] [address] documented in this encounter Visit Diagnoses Diagnosis Myalgia- Primary documented in this encounter Administered Medications Inactive Administered Medications - up to 3 most recent administrations Medication Order MAR Action Action Date Dose Rate Site acetaminophen tablet 1,000 mg (TYLENOL) 1,000 mg, oral, Once, On Mon02/05/24 at 1629, For 1 dose Given 02/05/2024 4:32 PM CDT 1,000 mg documented in this encounter Active and Recently Administered Medications Times are shown in CDT. Scheduled Medication Order 02/03/2024 02/04/2024 02/05/2024 acetaminophen tablet 1,000 mg (TYLENOL) (COMPLETED) 1,000 mg, oral, Once, On Mon02/05/24 at 1629, For 1 dose 1632 (Given - Provid er: Shell Allan R.N.) documented in this encounter Additional Health Concerns Infection Onset Date Last Indicated Resolved Time COVID19 Pending 02/05/2024 02/05/2024 02/05/2024 4 :55 PM CDT Assessment Noted Time PHQ-9 Depression Total Score: 0 06/22/20 23 1:03 PM CDT documented as of this encounter Care Teams Travel Specialist Relationship Specialty Start Date End Date Mary Phillip APRN, C.N.P. [address] [place] [phone] PCP - General Family Medicine 03/07/23 documented as of this encounter
--- OUTSIDE RECORDS SUMMARY | 2024-02-17 19:35 | XMS_ITS | Encounter Summary ---
Demographics Address [address] [place] [address] Mobile Phone Home Phone Email Address Email Address Preferred Language ENG Marital Status Single Oriental Orthodox Affiliation Unknown Race White Ethnic Group Not or Lati no Author Organization [facility] Address [address] [place] [address] Care Team Providers Care Fence Erector Name Role Phone Mary Phillip APRN, C.N.P. Primary Care Provide r Reason for Referral * Outpatient (Routine) - Closed Specialty Diagnoses / Procedures Referred By Chapin estrada Referred To Contact Diagnoses Arthralgia Arthritis Inflammatory (HCC) Procedures DX Foot Bilateral 3+ Views Murali Kelly M.D. [address] [place] [phone] [facility] Region Referral ID Status Reason Start Date Expiration Date Visits Re quested Visits Authorized [id number] Closed 02/06/2024 02/05/2025 1 1 Reason for Visit * Outpatient (Routine) - Closed Specialty Diagnoses / Procedures Referred By Chapin estrada Referred To Contact Diagnoses Arthralgia Arthritis Inflammatory (HCC) Procedures DX Foot Bilateral 3+ Views Murali Kelly M.D. [address] [place] [phone] [facility] Region Referral ID Status Reason Start Date Expiration Date Visits Re quested Visits Authorized [id number] Closed 02/06/2024 02/05/2025 1 1 Encounter Details Date Type Department Care Team (Latest Contact Info) Description 02/06/2024 9:54 AM CDT - 02/06/2024 11:59 PM CDT Hospital Encounter Department of Radiology in [place], [place] [address] [place] [address], [place] [address] Murali Kelly M.D. [address] [place] [address] Arthralgia; Arthritis Inflammatory (HCC) Discharge Disposition: Home or Self Care Social [...] often do you attend chur ch or sabianism services? More than 4 times per year 12/08/2020 Do you belong to any clubs o r organizations such as rastafari groups, unions, fraternal or athletic groups, or [...] Answer Date Recorded PHQ-2 Score 0 02/06/2024 [facility] of Occupat ional [facility] - Occupational Stress Questionnaire Answer Date Recorded [...] PM CDT documented as of this encounter Medications at Time of Discharge Medication Sig Dispensed Refills Start Date End Date cetirizine (ZyrTEC) 10 mg tablet Take 10 mg by mouth daily as needed for allergies. cyclobenzaprine (FLEXERIL) 10 mg tablet Take 1 tablet (10 mg total) by mouth 3 (three) times a day as needed for muscle spasms for up to 5 days. 15 tablet 02/05/2024 methylPREDNISolone (MEDROL DOSEPAK) 4 mg tabletIndications:Arthrit is Inflammatory (HCC) Take as directed on package. 21 tablet 02/06/2024 multivitamin tablet Take 1 tablet by mouth. 11/29/2017 documented as of this encounter Plan of Treatment Not on file documented as of this encounter Procedures Procedure Name Priority Date/Time Associated Diagnosis Comments DX FOOT BILATERAL 3+ VIEWS RAD - Routine (most inpatients and all outpatients) 02/06/2024 10:18 AM CDT Arthralgia Arthritis Inflammatory (HCC) documented in this encounter Results * DX Foot Bilateral 3+ Views (02/06/2024 [...] oraggressive appearing skeletal lesion. Murali Kelly M.D. [facility] NG PROCEDURES documented in this encounter Visit Diagnoses Diagnosis Arthralgia Arthritis Inflammatory (HCC) documented in this encounter Additional Health Concerns Assessment Noted Time PHQ-9 Depression Total Score: 0 02/06/20 24 9:56 AM CDT documented as of this encounter Care Teams Fence Erector Relationship Specialty Start Date End Date Mary Phillip APRN, C.N.P. [address] [place] [phone] PCP - General Family Medicine 03/07/23 documented as of this encounter
--- OUTSIDE RECORDS SUMMARY | 2024-02-17 19:35 | XMS_ITS | Encounter Summary ---
Demographics Address [address] [place] [address] Mobile Phone Home Phone Email Address Email Address Preferred Language ENG Marital Status Single Anabaptist Affiliation Unknown Race White Ethnic Group Not or Lati no Author Organization [facility] Address [address] [place] [address] Care Team Providers Care Gas Appliance Installer Name Role Phone Mary Phillip APRN, C.N.P. Primary Care Provide r Encounter Details Date Type Department Care Team (Latest Contact Info) Description 02/06/2024 9:43 AM CDT - 02/06/2024 9:53 AM CDT Hospital Encounter Department of Laboratory Medicine in [place], [place] [address] [place] [phone] Murali Kelly M.D. [address] [place] [address] Arthralgia; Arthritis Inflammatory (HCC) Discharge Disposition: [...] How often do you attend chur or nondenominational services? More than 4 times per year 12/08/2020 Do you belong to any clubs o r organizations such as protestant groups, unions, fraternal or athletic groups, or [...] Answer Date Recorded PHQ-2 Score 0 02/06/2024 [facility] of Occupat ional Health - Occupational Stress [...] Procedure Name Priority Date/Time Associated Diagnosis Comments MORPHOLOGY EVALUATION Routine 02/06/2024 9:53 AM CDT ANTINUCLEAR AB, HEP-2, SUBSTRATE, S Routine 02/06/2024 9:53 AM CDT Arthralgia Arthritis Inflammatory (HCC) MANUAL DIFFERENTIAL, B Routine 02/06/2024 9:53 AM CDT CYCLIC CITRULLINATED PEPTIDE ABS, IGG, S Routine [...] 9:53 AM CDT Arthralgia Arthritis Inflammatory (HCC) documented in this encounter Results * Manual Differential, Blood (02/06/2024 9:53 AM [...] CDT Murali Kelly M.D. LAB BLOOD ADD-ON [facility] [address] [address], [facility] R[facility] [place] [address] * (ABNORMAL) Morphology Evaluation (02/06/2024 9:53 AM CDT) RBC Morphology Normal 02/06/2024 10:50 AM CDT RDWG PLT Morphology Normal 02/06/2024 10:50 AM CDT [facility] PLT Estimate Adequate Adequate 02/06/2024 10:50 AM CDT R[facility] Reactive/Atypic al Lymphocytes Present(A) Not Seen 02/06/2024 10:50 AM CDT R[facility] Blood 02/06/2024 9:53 AM CDT 02/06/2024 9:54 AM CDT Murali Kelly M.D. LAB BLOOD ADD-ON [facility] [address] [address], [facility] R[facility] [place] [address] * Antinuclear Antibodies, HEp-2 Substrate, IgG, Serum (02/06/2024 9:53 AM CDT) Antinuclear Ab Screen by IFA, S Negative Negative 02/08/2024 12:04 PM CDT ECLR Comment:No titer performed, JEFE screen is negative. Blood (Blood, Venous) 02/06/2024 9:53 AM CDT 02/06/2024 2:28 PM CDT Murali Kelly M.D. LAB BLOOD ADD-ON [facility] [address] [place] [address], [facility] ECLR [address] [place] [phone] * Rheumatoid Factor (02/06/2024 9:53 AM CDT) Pathologist [facility] Rheumatoid Factor, S <10 <15 IU/mL 02/06/2024 3:01 PM CDT ECLR Blood (Blood, Venous) 02/06/2024 9:53 AM CDT 02/06/2024 2:28 PM CDT Murali Kelly M.D. LAB BLOOD ADD-ON [facility] [address] [place] [address], [facility] ECLR [facility] in [place] [address] [place] [address] * Cyclic Citrullinated Peptide Antibodies, IgG (02/06/2024 9:53 AM CDT) [facility] Cyclic Citrullinated Peptide Ab, S <15.6 <20.0 (Negative) U 02/07/2024 1:12 PM CDT [facility] Blood (Blood, Venous) 02/06/2024 9:53 AM CDT 02/07/2024 6:59 AM CDT Murali Kelly M.D. LAB BLOOD ADD-ON [facility] [address] [place] [address] [facility] [address] [place] [place] [address] * Comprehensive Metabolic Panel (02/06/2024 9:53 AM CDT) [facility] Potassium, P 4.0 3.6 - 5.2 mmol/L [...] CDT Murali Kelly M.D. LAB BLOOD ADD-ON [facility] [address] [address], [facility] R[facility] [place] [address] [place] [address] * (ABNORMAL) CRP (C-Reactive Protein) (02/06/2024 9:53 AM CDT) C-Reactive Protein (CRP), P 9.2(H) <5.0 mg/L 02/06/2024 10:23 AM CDT R[facility] Blood (Blood, Venous) 02/06/2024 9:53 AM CDT 02/06/2024 9:54 AM CDT Murali Kelly M.D. LAB BLOOD ADD-ON [facility] [address] [address], [place] [facility] [place] [address] * Sedimentation Rate (02/06/2024 9:53 AM CDT) Sedimentation Rate, B 20 0 - 29 mm/1 h 02/06/2024 10:28 AM CDT [facility] Blood (Blood, Venous) 02/06/2024 9:53 AM CDT 02/06/2024 9:54 AM CDT Murali Kelly M.D. LAB BLOOD ADD-ON [facility] [address] [address], [place] [facility] [place] [address] [place], [place] [phone] * CBC with Differential, Blood (02/06/2024 9:53 AM CDT) Hemoglobin 12.7 11.6 - 15.0 g/dL 02/06/2024 [...] CDT Murali Kelly M.D. LAB BLOOD ADD-ON [facility] [address] [place] [address], [facility] R[facility] [place] [address] [place] [address] documented in this encounter Visit Diagnoses Diagnosis Arthralgia Arthritis Inflammatory (HCC) documented in this encounter Additional Health Concerns Assessment Noted Time PHQ-9 Depression Total Score: 0 02/06/20 24 9:56 AM CDT documented as of this encounter Care Teams Gas Appliance Installer Relationship Specialty Start Date End Date Mary Phillip APRN, C.N.P. [address] [place] [phone] PCP - General Family Medicine 03/07/23 documented as of this encounter
--- OUTSIDE RECORDS SUMMARY | 2024-02-17 19:35 | XMS_ITS | Encounter Summary ---
Demographics Address [address] [place] [address] Mobile Phone Home Phone Email Address Email Address Preferred Language ENG Marital Status Single Pentecostal Affiliation Unknown Race White Ethnic Group Not or Lati no Author Organization [facility] Address [address] [place] [address] Care Team Providers Care Radio Mechanic Helper Name Role Phone Mary Phillip APRN, C.N.P. Primary Care Provide r Reason for Referral * Outpatient (Routine) - Closed Specialty Diagnoses / Procedures Referred By Chapin estrada Referred To Contact Diagnoses Arthralgia Arthritis Inflammatory (HCC) Procedures DX Foot Bilateral 3+ Views Murali Kelly M.D. [address] [place] [phone] [facility] Region Referral ID Status Reason Start Date Expiration Date Visits Re quested Visits Authorized [id number] Closed 02/06/2024 02/05/2025 1 1 * Outpatient (Routine) - Closed Specialty Diagnoses / Procedures Referred By Chapin estrada Referred To Contact Diagnoses Arthralgia Arthritis Inflammatory (HCC) Procedures DX Hand Bilateral 3+ Views Murali Kelly M.D. [address] [place] [phone] [facility] Region Referral ID Status Reason Start Date Expiration Date Visits Re quested Visits Authorized [id number] Closed 02/06/2024 02/05/2025 1 1 Reason for Visit * Reason Comments Neck Pain Stiffness, hands and feet swelling * Appointment Request (Routine) - Closed Specialty Diagnoses / Procedures Referred By Chapin estrada Referred To Contact Family Medicine Referral ID Status Reason Start Date Expiration Date Visits Re quested Visits Authorized [id number] Closed 02/06/2024 02/05/2025 1 1 Encounter Details Date Type Department Care Team (Kitty st Contact Info) Description 02/06/2024 9:00 AM CDT Office Visit Department of Family Medicine, [facility], in [place], [place] [address] [place] [phone] Murali Kelly M.D. [address] [place] [phone] Arthritis Inflammatory (HCC) (Primary Dx); Arthralgia; Asthma Tobacco User Discharge Disposition: Home or Self Care Social [...] week 12/08/2020 How often do you attend [facility] or adventist services? More than 4 times per year 12/08/2020 Do you belong to any clubs o r organizations such as islam groups, unions, fraternal or athletic groups, or [...] Answer Date Recorded PHQ-2 Score 0 02/06/2024 [facility] of Occupat ional [facility] - Occupational Stress Questionnaire Answer [...] 02/06/2024 9:04 AM CD T Respiratory Rate - - Oxygen Saturation - - Inhaled Oxygen Concentration - - Weight 53.1 kg (117 lb 1 oz) 02/06/2024 9:04 AM CDT Height 160 cm (5' 2.99) 02/06/2024 9:04 AM CDT Body Mass Index 20.74 02/06/2024 9:04 AM CDT documented in this encounter Progress Notes * Murali Kelly M.D. - 02/06/2024 9:00 AM CDT SUBJECTIVE CHIEF COMPLAINT/REASON FOR VISIT Martha has Depressive Disorder on their problem list. She is a 24 y.o. female who presents for evaluation of Neck Pain (Stiffness, hands and feet swelling) HISTORY OF PRESENT ILLNESS Martha presents for discussion of bilateral hand, wrist, feet pain and swelling of joints with moderate severity for the past 4-5 days. Patient describes the symptoms as also having stiffness of her neck. Symptoms are worsening in her joints, but better in her neck. She denies any URI symptoms or fevers. She denies any ill contacts. Patient denies any other aggravating or alleviating factors or associated symptoms. Treatments used so far include: Toradol, Flexeril hasn't helped. She has a strong family history of Rheumatoid Arthritis. She also has bilateral knee, hip, shoulder pain as well. She was in the emergency room twice yesterday for the same or similar symptoms. Again, her neck symptoms have improved, but the other joints all throughout her body have gotten significantly worse. She feels achy and stiff just trying to get up from a chair and in the mornings and gets better aftershe was walking around some. Flexeril and Toradol did not seem to help out much at all. Current Outpatient Medications Medication Sig Dispense Refill cetirizine (ZyrTEC) 10 mg tablet Take 10 mg by mouth daily as needed for allergies. cyclobenzaprine (FLEXERIL) 10 mg tablet Take 1 tablet (10 mg total) by mouth 3 (three) times a day as needed for muscle spasms for up to 5 days. 15 tablet 0 multivitamin tablet Take 1 tablet by mouth. No current facility-administered medications for this visit. The following portions of the patient's history were reviewed and updated as appropriate: allergies, current medications, family history, medical history, social history, surgical history and problemlist. REVIEW OF SYSTEMS General: No acute distress. No fever, chills. Lungs: Denies cough, SOB. CV: Denies chest pain. Abdomen: Denies abdominal pain, no change in bowel habits. Ext: Denies edema. Psych: Denies change in mood. Musculoskeletal: Positive for pain or stiffness in the joints. OBJECTIVE Blood pressure 103/68, pulse 89, temperature 36.2 ??C, temperature source Temporal, height 160 cm, weight 53.1 kg, not currently . PHYSICAL EXAMINATION Constitutional Appearance: She is well-developed. Cardiovascular Rate and Rhythm: Normal rate and regular rhythm. Heart sounds: Normal heart sounds. Pulmonary Effort: Pulmonary effort is normal. Breath sounds: Normal breath sounds. Abdominal General: Bowel sounds are normal. There is no distension. Palpations: Abdomen is soft. There is no mass. Tenderness: There is no abdominal tenderness. Musculoskeletal General: Swelling and tenderness present. Cervical back: Tenderness (Stiffness with side bending of her neck and rotation of her neck, but full flexion and extension of neck.) present. Comments: Bilateral wrist and finger pain and swelling and unable to close fingers to make a fist Lymphadenopathy Cervical: No cervical adenopathy. Neurological Mental Status: She is alert and oriented to person, place, and time. Psychiatric Judgment: Judgment normal. ASSESSMENT / PLAN #1 Arthralgia #2 Arthritis Inflammatory (HCC) - methylPREDNISolone (MEDROL DOSEPAK) 4 mg tablet; Take as directed on package., Normal #3 Asthma Tobacco User Other orders - CBC with Differential, Blood; Future; Expected date: 02/06/2024 - Sedimentation Rate; Future; Expected date: 02/06/2024 - CRP (C-Reactive Protein); Future; Expected date: 02/06/2024 - Comprehensive Metabolic Panel; Future; Expected date: 02/06/2024 - Cyclic Citrullinated Peptide Antibodies, IgG; Future; Expected date: 02/06/2024 - Rheumatoid Factor; Future; Expected date: 02/06/2024 - Antinuclear Antibodies, HEp-2 Substrate, IgG, Serum; Future; Expected date: 02/06/2024 - DX Hand Bilateral 3+ Views; Future; Expected date: 02/06/2024 - DX Foot Bilateral 3+ Views; Future; Expected date: 02/06/2024 - New problem. Symptoms are strongly suspicious of inflammatory arthritis. She does have a strong family history of several family members with rheumatoid arthritis. Symptoms are consistent with that. - Medrol dose pack is ordered for acute symptoms of inflammatory arthritis. - further workup is needed with labs and x-rays of her hands and feet. Patient will be informed of the results once they are available. She will also likely need a consult with Rheumatology. Hold NSAIDs while on the steroids, but may resume afterwards.. - Quitting smoking is the most important thing you can do for your health. documented in this encounter Plan of Treatment Not on file documented as of this encounter Results * DX Hand Bilateral 3+ Views [...] osseouserosion. Ulnar positive variance. Murali Kelly M.D. [facility] DIAGNOSTIC IMAGI NG PROCEDURES * DX Foot [...] oraggressive appearing skeletal lesion. Murali Kelly M.D. [facility] DIAGNOSTIC IMAGI NG PROCEDURES * Antinuclear Antibodies, HEp-2 Substrate, IgG, Serum (02/06/2024 9:53 AM CDT) Antinuclear Ab Screen by IFA, S Negative Negative 02/08/2024 12:04 PM CDT ECLR Comment:No titer performed, JEFE screen is negative. Blood (Blood, Venous) 02/06/2024 9:53 AM CDT 02/06/2024 2:28 PM CDT Murali Kelly M.D. LAB BLOOD ADD-ON [facility] [address] [place] [address], [facility] ECLR [address] [place] [phone] * Rheumatoid Factor (02/06/2024 9:53 AM CDT) Pathologist [facility] Rheumatoid Factor, S <10 <15 IU/mL 02/06/2024 3:01 PM CDT ECLR Blood (Blood, Venous) 02/06/2024 9:53 AM CDT 02/06/2024 2:28 PM CDT Murali Kelly M.D. LAB BLOOD ADD-ON [facility] [address] [place] [address], [facility] ECLR [facility] in [place] [address] [place] [address] * Cyclic Citrullinated Peptide Antibodies, IgG (02/06/2024 9:53 AM CDT) [facility] Cyclic Citrullinated Peptide Ab, S <15.6 <20.0 (Negative) U 02/07/2024 1:12 PM CDT [facility] Blood (Blood, Venous) 02/06/2024 9:53 AM CDT 02/07/2024 6:59 AM CDT Murali Kelly M.D. LAB BLOOD ADD-ON [facility] [address] [place] [place] [address] [facility] [address] [place] [address] * Comprehensive Metabolic Panel (02/06/2024 9:53 AM CDT) [facility] Potassium, P 4.0 3.6 - 5.2 mmol/L [...] CDT Murali Kelly M.D. LAB BLOOD ADD-ON [facility] [address] [place] [address], [facility] R[facility] [place] [address] [place], [place] [phone] * (ABNORMAL) CRP (C-Reactive Protein) (02/06/2024 9:53 AM CDT) C-Reactive Protein (CRP), P 9.2(H) <5.0 mg/L 02/06/2024 10:23 AM CDT [facility] Blood (Blood, Venous) 02/06/2024 9:53 AM CDT 02/06/2024 9:54 AM CDT Murali Kelly M.D. LAB BLOOD ADD-ON [facility] [address] [address], [place] [facility] [place] [address] * Sedimentation Rate (02/06/2024 9:53 AM CDT) Sedimentation Rate, B 20 0 - 29 mm/1 h 02/06/2024 10:28 AM CDT [facility] Blood (Blood, Venous) 02/06/2024 9:53 AM CDT 02/06/2024 9:54 AM CDT Murali Kelly M.D. LAB BLOOD ADD-ON [facility] [address] [address], [facility] [place] [address] [place], [place] [phone] * CBC with Differential, Blood (02/06/2024 9:53 [...] CDT Murali Kelly M.D. LAB BLOOD ADD-ON [facility] [address] [facility] [place] [address], [facility] R[facility] [place] [address] [place] [address] documented in this encounter Visit Diagnoses Diagnosis Arthritis Inflammatory (HCC)- Primary Arthralgia Asthma Tobacco User Arthralgia Arthritis Inflammatory (HCC) Arthralgia Arthritis Inflammatory (HCC) documented in this encounter Additional Health Concerns Assessment Noted Time PHQ-9 Depression Total Score: 0 02/06/20 24 9:56 AM CDT documented as of this encounter Care Teams Radio Mechanic Helper Relationship Specialty Start Date End Date Mary Phillip APRN, C.N.P. [facility] [place] [phone] PCP - General Family Medicine 03/07/23 documented as of this encounter
--- OUTSIDE RECORDS SUMMARY | 2024-02-17 19:35 | XMS_ITS | Encounter Summary ---
Demographics Address [address] [place] [address] Mobile Phone Home Phone Email Address Preferred Language ENG Marital Status Single Hindu Affiliation Unknown Race White Ethnic Group Not or Lati no Author Organization [facility] Address [address] [place] [address] Care Team Providers Care Look Out Tower Fire Watcher Name Role Phone Mary Phillip APRN, C.N.P. Primary Care Provide r Reason for Referral * Outpatient (Routine) - Closed Specialty Diagnoses / Procedures Referred By Chapin estrada Referred To Contact Diagnoses Arthralgia Arthritis Inflammatory (HCC) Procedures DX Hand Bilateral 3+ Views Murali Kelly M.D. [address] [place] [phone] [facility] Region Referral ID Status Reason Start Date Expiration Date Visits Re quested Visits Authorized [id number] Closed 02/06/2024 02/05/2025 1 1 Reason for Visit * Outpatient (Routine) - Closed Specialty Diagnoses / Procedures Referred By Chapin estrada Referred To Contact Diagnoses Arthralgia Arthritis Inflammatory (HCC) Procedures DX Hand Bilateral 3+ Views Murali Kelly M.D. [address] [place] [phone] [facility] Region Referral ID Status Reason Start Date Expiration Date Visits Re quested Visits Authorized [id number] Closed 02/06/2024 02/05/2025 1 1 Encounter Details Date Type Department Care Team (Latest Contact Info) Description 02/06/2024 9:54 AM CDT - 02/06/2024 11:59 PM CDT Hospital Encounter Department of Radiology in [address] [place] [address] Murali Kelly M.D. [address] [place] [address] Arthralgia; Arthritis Inflammatory (HCC) Discharge Disposition: [...] often do you attend chur ch or yazidi services? More than 4 times per year 12/08/2020 Do you belong to any clubs o r organizations such as baptist groups, unions, fraternal or athletic groups, or [...] Answer Date Recorded PHQ-2 Score 0 02/06/2024 [facility] of Occupat ional [facility] - Occupational Stress Questionnaire Answer [...] 10:21 AM CDT Arthralgia Arthritis Inflammatory (HCC) documented in this encounter Results * DX Hand Bilateral [...] fracture or osseouserosion. Ulnar positive variance. Murali MCELROY DIAGNOSTIC IMAGI NG PROCEDURES documented in this encounter Visit Diagnoses Diagnosis Arthralgia Arthritis Inflammatory (HCC) documented in this encounter Additional Health Concerns Assessment Noted Time PHQ-9 Depression Total Score: 0 02/06/20 24 9:56 AM CDT documented as of this encounter Care Teams Look Out Tower Fire Watcher Relationship Specialty Start Date End Date Mary Phillip APRN, C.N.P. [address] [place] [phone] PCP - General Family Medicine 03/07/23 documented as of this encounter
--- OUTSIDE RECORDS SUMMARY | 2024-02-17 19:35 | XMS_ITS | Encounter Summary ---
Demographics Address [address] [place] [address] Mobile Phone Home Phone Email Address Email Address Preferred Language ENG Marital Status Single Mandaeism Affiliation Unknown Race White Ethnic Group Not or Lati no Author Organization [facility] Address [address] [place] [address] Care Team Providers Care Pile Driver Operator Name Role Phone Mary Phillip APRN, C.N.P. Primary Care Provide r Reason for Visit * Reason Comments Neck Pain Presents with right neck pain and stiffness that she awoke with 2 days ago. Denies injury. Denies fever or chills Encounter Details Date Type Department Care Team (Late st Contact Info) Description 02/05/2024 6:33 AM CDT - 02/05/2024 7:19 AM CDT Emergency [facility] [address] [place] [id number] Ember Castillo APRN, C.N.P. [address] [place] [id number] Torticollis (Primary Dx) Discharge Disposition: Home or [...] How often do you attend chur or mormonism services? More than 4 times per year 12/08/2020 Do you belong to any clubs o r organizations such as quaker groups, unions, fraternal or athletic groups, or [...] Answer Date Recorded PHQ-2 Score 0 02/06/2024 [facility] Occupat ional Health - Occupational Stress [...] Sign Reading Time Taken Comments Blood Pressure 107/78 02/05/2024 6:44 AM CDT Pulse 85 02/05/2024 6:44 AM CDT Temperature 36.4 ??C (97.5 ??F) 02/05/2024 6:44 AM CD T Respiratory Rate 16 02/05/2024 6:44 AM CDT Oxygen Saturation 98% 02/05/2024 6:44 AM CDT Inhaled Oxygen Concentration - - Weight 52 kg (114 lb 10.2 oz) 02/05/2024 6:43 AM CDT Height - - Body Mass Index 20.31 09/13/2023 8:13 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 - 02/05/2024 7:13 AM CDT You received a dose of Toradol in the emergency department , this is a medication like Ibuprofen but stronger. You can take Tylenol today and then Ibuprofen this evening. As we discussed, heat, topical medications, gentle stretching can not be helpful. Avoid activities such as heavy lifting/pushingor pulling that makes your pain worse. This can sometimes last for several days before improving. I sent a prescription for a muscle relaxer to your pharmacy. This can sometimes help with the muscle spasms that are causing your pain. It will often make you sleepy so do not use it if you are goingto drive or operate heavy machinery. Come back to the emergency department if you have new or worsening symptoms, particularly if you develop numbness or tingling in your arms or hands, severe pain, vomiting, fever or chills. See attached paperwork for a more complete list and more information about your condition. * Attachments The following attachments cannot be sent through Care Everywhere. * Acute Torticollis Adult ([place] Islander) documented in this encounter Medications at Time [...] * Ember Castillo APRN, C.N.P. - 02/05/2024 6:53 AM CDT SUBJECTIVE CHIEF COMPLAINT/REASON FOR VISIT Neck Pain (Presents with right neck pain and stiffness that she awoke with 2 days ago. Denies injury. Denies fever or chills) HISTORY OF PRESENT ILLNESS Martha Hoang is a 24 y.o. female without significant medical history presenting to the emergency department for evaluation of neck pain. Patient states woke up with right-sided neck pain and stiffness 2 days ago. No known injury. Denies fever or chills. Patient notes she went to the chiropractor almost a week before onset of her symptoms, had manipulation of her neck for a headache. Headache resolved and she did not have pain until she woke 2 days ago. She denies any nausea or vomiting. No dizziness. No difficulty swallowing. No numbness or tingling in her arms or hands. No vision changes. 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 HENT: Negative for trouble swallowing. Eyes: Negative for visual disturbance. Gastrointestinal: Negative for nausea and vomiting. Musculoskeletal: Positive for neck pain and neck stiffness. Negative for back pain and extremity pain. Neurological: Negative for dizziness, weakness, numbness and headaches. OBJECTIVE Initial Vitals [02/05/24 0644] Temperature 36.4 ??C Pulse Rate 85 Heart Rate Resp Rate 16 Blood Pressure 107/78 SpO2 98 % Pain Score 3 PHYSICAL EXAMINATION Constitutional: Nursing note and vitals reviewed. No distress. HENT: Head: Normocephalic and atraumatic. Nose: Nose normal. Mouth/Throat: Mucous membranes are moist. Eyes: Conjunctivae and EOM are normal. Pupils are equal, round, and reactive to light. Right eye exhibits no discharge. Left eye exhibits no discharge. Neck: Reduced lateral range of motion, able to turn her head to about 45?? both left and right. Full flexion and extension. No focal tenderness along the spine, no step-off deformity. No skin lesions. Cardiovascular: Normal rate, regular rhythm and normal heart sounds. Pulmonary/Chest: Effort normal and breath sounds normal. There is normal air entry. No tachypnea. Musculoskeletal: General: Normal range of motion. Neurological: Alert. Skin: Skin is warm and intact. She is not diaphoretic. Psychiatric: She has a normal mood and affect. Behavior is normal. Judgment and thought content normal. ASSESSMENT/PLAN History and exam most consistent with torticollis. Given a dose of Toradol here in the emergency department. Discharge home with prescription for Flexeril, discussed she should use this medication while driving or operating heavy machinery and it may make her sleepy. Discussed symptomatic treatment including ibuprofen, Tylenol, topical medications, heat and gentle stretching. Return precautions were reviewed including any new neurologic or systemic symptoms should prompt her to return to the emergency department. Assessment and Plan DIFFERENTIAL DIAGNOSES Consider vertebral artery dissection as she had neck manipulation approximately 1 week prior to onset of symptoms. Other than neck pain and stiffness, she is not having any symptoms, no neuro symptoms as noted in her HPI. She is ambulating without difficulty, has a normal neuro exam, so at this point I think this is less likely. No systemic symptoms to suggest an infectious etiology such as abscess. No mechanism of traumatic bony injury. Suspect torticollis and will treat as such. I did discuss with patient risk for dissection with chiropractic manipulation, I discussed with her if she develops any symptoms such as numbness, dizziness, nausea and vomiting, worsening of her pain she should return to the emergency department for re-evaluation.. Care is significantly affected by the following Social Determinants of Health: None appreciated. Final Diagnoses: as of 02/05/24718 Torticollis The following tests were considered but ultimately not performed: Considered CTA head and neck for dissection given chiropractic manipulation approximately 1 week prior to her symptom onset, as discussed does not have other symptoms that would point towards dissection.. Escalation of care, including admission/observation, considered: Not indicated. Ember Castillo APRN, C.N.P. 02/05/24718 documented in this encounter Plan of Treatment Not on file documented as of this encounter Visit Diagnoses Diagnosis Torticollis- Primary documented in this encounter Administered Medications Inactive Administered Medications - up to 3 most recent administrations Medication Order MAR Action Action Date Dose Rate Site ketorolac injection 15 mg (TORADOL) 15 mg, intramuscular, Once, On Mon02/05/24 at 0709, For 1 dose, Adult IV push rate: Over 15 seconds. Peds IV push rate: Over 1 minute. Doses > 15 mg IV/IM are discouraged due to lack of additional analgesic benefit. Given 02/05/2024 7:11 AM CDT 15 mg Left Vastus Laterali s documented in this encounter Active and Recently Administered Medications Times are shown in CDT. Scheduled Medication Order 02/03/2024 02/04/2024 02/05/2024 ketorolac injection 15 mg (TORADOL) (COMPLETED) 15 mg, intramuscular, Once, On 02/05/24 at 0709, For 1 dose, Adult IV push rate: Over 15 seconds. Peds IV push rate: Over 1 minute. Doses > 15 mg IV/IM are discouraged due to lack of additional analgesic benefit. 0711 (Given - Provid er: Shell Allan R.N.) documented in this encounter Additional Health Concerns Assessment Noted Time PHQ-9 Depression Total Score: 0 06/22/20 1:03 PM CDT documented as of this encounter Care Teams Pile Driver Operator Relationship Specialty Start Date End Date Mary Phillip APRN, C.N.P. [address] [place] [phone] PCP - General Family Medicine 03/07/23 documented as of this encounter
--- OUTSIDE RECORDS SUMMARY | 2024-02-17 19:35 | XMS_ITS | Encounter Summary ---
Demographics Address [address] [place] [address] Mobile Phone Home Phone Email Address Email Address Preferred Language ENG Marital Status Single [employer] Affiliation Unknown Race White Ethnic Group Not or Lati no Author Organization [facility] Address [address] [place] [address] Care Team Providers Care Historical Society Director Name Role Phone Mary Phillip APRN, C.N.P. Primary Care Provide r Reason for Visit * Reason Onset Date Comments Myalgia 02/06/2024 Encounter Details Date Type Department Care Team (Late st Contact Info) Description 02/06/2024 Nurse Triage Department of Family Medicine, [facility], in [address] [phone] Anaya Bates R.N. [address] [place] [address] Myalgia Social History Tobacco Use Types Packs/Day Years [...] Answer Date Recorded PHQ-2 Score 0 02/06/2024 [facility] Answer Date Recorded [...] PM CDT documented as of this encounter Miscellaneous Notes * Telephone Encounter - Anaya Bates R.N. - 02/06/2024 8:03 AM CDT Chief Complaint / Reason for Call Patient is a 24 y.o. female calling regarding Myalgia. Assessment Concern: Patient calls stating that she was seen in the ER twice yesterday for myalgia, neck pain and bilateral swelling of her hands and feet. She tested negative for Influenza and COVID. Denies newsymptoms and she remains afebrile. Patient state that she is taking Flexeril and Tylenol which is not helping the pain. Rates pain as a 6/10 when she gets up to ambulate. Present for: Monday 6/7 Home cares tried: Flexeril, Tylenol, Rest Calling to request: appointment The recommended disposition is See a health care provider within 3 days. Patient was warm transferred toKeli Patient Appointment Cell Tuber Machine at the clinic for further assistance. Patient provided education on options if no clinic access is available within the recommended timeframe to include local Urgent Care or Emergency Department. Patient verbalizes understanding of this. Reason for Disposition [1] MODERATE pain (e.g., interferes with normal activities) AND [2] present > 3 days Protocols used: Muscle Aches and Body [id number] Care Advice Patient/Caregiver understands and will follow care advice?: Yes, able to teach back Muscle Aches and Body [id number] Nurse Anaya Al Feb 06, 2024 08:09 AM Care Advice PAIN MEDICINES: * For pain relief, you can take either acetaminophen, ibuprofen, or naproxen. * They are kejc-qdi-[id number] (OTC) pain drugs. You can buy them at the drugstore. * ACETAMINOPHEN - REGULAR STRENGTH TYLENOL: Take 650 mg (two 325 mg pills) by mouth every 4 to 6 hours as needed. Each Regular Strength Tylenol pill has 325 mg of acetaminophen. The most you should take is 10 pills a day (3,250 mg total). Note: In [place], the maximum is 12 pills a day (3,900 mg total). * ACETAMINOPHEN - EXTRA STRENGTH TYLENOL: Take 1,000 mg (two 500 mg pills) every 6 to 8 hours as needed. Each Extra Strength Tylenol pill has 500 mg of acetaminophen. The most you should take is 6 pills a day (3,000 mg total). Note: In [place], the maximum is 8 pills a day (4,000 mg total). * IBUPROFEN (E.G., MOTRIN, ADVIL): Take 400 mg (two 200 mg pills) by mouth every 6 hours. The most you should take is 6 pills a day (1,200 mg total). * NAPROXEN (E.G., ALEVE): Take 220 mg (one 220 mg pill) by mouth every 8 to 12 hours as needed. Youmay take 440 mg (two 220 mg pills) for your first dose. The most you should take is 3 pills a day (660 mg total). Note: In [place], the maximum is 2 pills a day (one every 12 hours; 440 mg total). * Use the lowest amount of medicine that makes your pain better. CALL BACK IF: * Fever occurs * You become worse documented in this encounter Plan of Treatment Not on file documented as of this encounter Visit Diagnoses Not on filedocumented in this encounter Additional Health Concerns Assessment Noted Time PHQ-9 Depression Total Score: 0 02/06/20 24 9:56 AM CDT documented as of this encounter Care Teams Historical Society Director Relationship Specialty Start Date End Date Mary Phillip APRN, C.N.P. [address] [place] [address] PCP - General Family Medicine 03/07/23 documented as of this encounter
[2024-02-17 19:41] LABS: Chloride* 108 mmol/L (96-114); Potassium* 4.4 mmol/L (3.6-5.1); Sodium* 140 mmol/L (135-149)
[2024-02-17 19:44] LABS: Creatinine* 0.6 mg/dL (0.5-1.5); Est. Creatinine Clearance* 126.38; Estimated Glomerular Filt Rate 130 ml/min
[2024-02-17 19:45] LABS: Anion Gap 7 mEq/L (7-15); Blood Urea Nitrogen* 11 mg/dL (5-24); Calcium* 9.3 mg/dL (8.4-10.6); Carbon Dioxide* 25 mmol/L (20-32); Glucose* 100 mg/dL (60-115)
[2024-02-17 19:46] LABS: D Dimer Quantitative* 0.79 ug/ml (0.00-0.50)
[2024-02-17 19:47] LABS: Slide Review Reflex No
[2024-02-17 19:48] LABS: C Reactive Protein* < 0.5 mg/dL (0.5-1.0)
--- NOTE | 2024-02-17 19:54 | CRLHL7_ITS ---
For Patients: As a result of the Century Cures Act, medical imaging exams and procedure reports are released immediately into your electronic medical record. You may view this report before your referring provider. If you have questions, please contact your health care provider. INDICATION: Chest pain, elevated D-dimer. TECHNIQUE: CT chest PE was acquired with 100 cc Omnipaque 350 IV contrast. COMPARISON: None. FINDINGS: Heart and vasculature: Contrast opacification of the pulmonary arterial tree is adequate. No sign of pulmonary embolism. Heart size is normal. Thoracic aorta and pulmonary artery are normal in caliber. Lungs and pleura: No suspicious nodules or infiltrates. No pleural effusions, pleural thickening, or pneumothorax. Lymph nodes/mediastinum: No mediastinal, hilar, or axillary adenopathy. Chest wall: No masses. Upper abdomen: No acute or significant findings. Bones: Unremarkable for age. IMPRESSION: No pulmonary embolism. No focal consolidations. Please note that all CT scans at this facility use dose modulation, iterative reconstruction, and/or weight-based dosing when appropriate to reduce radiation dose to as low as reasonably achievable. Dictated by Bautista Chi MD @ 02/17/2024 8:55:28 PM (Electronically Signed)
[2024-02-17] MEDS: MORPHINE 4 MG/ML INJ IVP (20:04)
== END 2024-02-17 21:07 | disposition home or self-care (01) ==
LOC: ED 19:33
PROVIDERS: Emergency Provider Family Medicine
DX: R07.89 Other chest pain (principal)
CPT/HCPCS: 36415; 71045; 71275; 80048; 84484; 85025; 85379; 86140; 93005; 94761; 96374; 99284; 99285; A9270; J2270; J7512; Q9967